=== PATIENT | female | born 1985 | race Caucasian/White ===

== ENCOUNTER → 2018-11-08 | Outpatient (CLI) | payer OTHER ==
[2018-11-08 13:24] LABS: BASO % 0.3 % (0.0-1.0); EOS # 0.2 10^3/uL (0.0-0.50); EOS % 1.7 % (0.0-3.0); HEMATOCRIT 37.4 % (36.0-47.0); HEMOGLOBIN 12.4 g/dl (12.0-15.5); LYMPH # 1.9 10^3/uL (1.5-4.5); LYMPH % 16.2 % (24.0-44.0); MEAN CORPUSCULAR HEMOGLOBIN 29.9 pg (27.0-33.0); MEAN CORPUSCULAR HGB CONC 33.2 g/dl (32.0-36.5); MEAN CORPUSCULAR VOLUME 90.1 fl (80.0-96.0); MONO # 0.5 10^3/uL (0.0-0.8); MONO % 4.1 % (0.0-5.0); NEUTROPHILS % 77.2 % (36.0-66.0); PLATELET COUNT, AUTOMATED 276 10^3/uL (150-450); RED BLOOD COUNT 4.15 10^6/uL (4.00-5.40); WHITE BLOOD COUNT 11.7 10^3/uL (4.0-10.0)
== END ==
LOC: M LAB 11:51
PROVIDERS: ATTEND Nurse Practitioner Women's Health
DX: Z34.82 Encounter for supervision of other normal pregnancy, second trimester (principal); Z3A.00 Weeks of gestation of pregnancy not specified

== ENCOUNTER 2019-02-05 03:49 | Inpatient (IN) | payer OTHER ==
[2019-02-05] VITALS (15 sets, daily range): BP systolic 108–157; BP diastolic 63–91
[~2019-02-05] VITALS: Ht 180.3 cm; Wt 63.0 kg
[2019-02-05] MEDS ORDERED: PENICILLIN G POTASSIUM IV 5 MU in D5W MINI-BAG PLUS 100 ML IV ONE (05:00)
[2019-02-05 05:13] LABS: HEMATOCRIT 36.4 % (36.0-47.0); HEMOGLOBIN 12.2 g/dl (12.0-15.5); MEAN CORPUSCULAR HEMOGLOBIN 30.5 pg (27.0-33.0); MEAN CORPUSCULAR HGB CONC 33.5 g/dl (32.0-36.5); PLATELET COUNT, AUTOMATED 213 10^3/uL (150-450); WHITE BLOOD COUNT 9.6 10^3/uL (4.0-10.0)
[2019-02-05] MEDS ORDERED: FOLI400T PO (05:47)
[2019-02-05] MEDS ORDERED: PRENTAB9 PO (05:47)
[2019-02-05] MEDS ORDERED: LR 1,000 ML IV SCH ×3 (06:18→07:05)
[2019-02-05] MEDS ORDERED: PENICILLIN G POTASSIUM IV 5 MU in D5W MINI-BAG PLUS 100 ML IV STA (06:22)
[2019-02-05] MEDS ORDERED: LACTATED RINGER'S 1000 ML IV ONE (06:30)
[2019-02-05] MEDS ORDERED: OXYTOCIN DRIP 30 UNITS in APPROPRIATE DILUENT 1 EA IV SCH ×6 (06:30→11:01)
--- NOTE | 2019-02-05 09:11 | IPNPDOC ---
Text Note Date of Service The patient was seen on 02/05/19. NOTE Intrapartum Note I assumed care of David at 0730 David is a 34yo with SIUP at 39w0d who presented early this morning with PROM at 0300 this morning, clear. She was started on PCN and will be PCN complete at 0930. She is still not feeling strong ctx. Good movement. Vitals wnl, afebrile Cat I FHRT bl 130's, +accels, -decels, mod mark [place]: ctx q3min SCE: 5-6/80/-2, still clear fluid Plan: Continue to closely monitor Next dose of PCN at 0930 Will initiate pitocin and titrate up per protocol Epidural as desired Safe to proceed Dr. Laury Rutledge MD VS,Shadi, I+O VS, Shadi, I+O Laboratory Tests 02/05/19 05:07 Red Blood Count 4.00, Mean Corpuscular Volume 91.0, Mean Corpuscular Hemoglobin 30.5, Mean Corpuscular Hemoglobin Concent 33.5, Red Cell Distribution Width 13.2 Vital Signs Date Time Temp Pulse Resp B/P (MAP) Pulse Ox O2 Delivery O2 Flow Rate FiO2 02/05/19 04:17 98.3 90 16 121/79 (93) Laury Rutledge MD Feb 05, 2019 09:11
[2019-02-05] MEDS ORDERED: PENICILLIN G POTASSIUM IV 2.5 MU in APPROPRIATE DILUENT 1 EA IV SCH (09:30)
--- NOTE | 2019-02-05 09:35 | HPE ---
DATE OF ADMISSION: 02/05/2019 34-year-old 2, para 1, last menstrual period (LMP) 05/08/2018, expected date of confinement (EDC) 02/12/2019, at 39 weeks of gestation with spontaneous rupture of membranes, clear liquid, GBS positive. Risk factors is she is an advanced maternal age, mitral valve prolapse, GBS positive, in vitro fertilization (IVF) , pyeloplasty of the left kidney. PAST HISTORY: January 2016, at 39 weeks, 7 pounds 9 ounces female, vaginal delivery, preeclampsia with severe features, induction of labor, vacuum-assisted delivery with a second-degree tear. LABS: A+, HIV negative, hepatitis negative, RPR negative, rubella immune, varicella immune. Urine negative. GBS was positive. Gonorrhea and chlamydia are negative. 1-hour glucose was 135 and she is doing her blood sugars. ON EXAMINATION: No distress. Symphysis fundus height is 39, vertex, posterior, -3 station, 50% effaced, 1 cm. Urine is 1.000, pH of 6 and the rest is negative. Temperature is 98.3, pulse 90, respirations 16, blood pressure 121/79. The rest of the examination is unremarkable. She is normocephalic, atraumatic. Neck: Full range of motion. Pupils equal and reactive to light. Distal pulses symmetric. No evidence of deep vein thrombosis (DVT), pulmonary embolism (PE) or superficial phlebitis. Chest is clear bilaterally to bases. No wheezes or rhonchi. No costovertebral angle (CVA) tenderness. Uterus appropriate symphysis fundus height, four quadrant bowel sounds, no incisions. No rashes, lesions or pruritus. No arthralgia. No myalgias. No complaint of joint pain. No complaint of cough, wheeze, shortness of breath or dyspnea on exertion. No bleeding. Neuro complete. No frequency or incontinency. She has no diabetic issues. Doing her 1-hour glucose, it was 135 and she elected to go ahead and do fingersticks, which were normal. 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 No sexually transmitted diseases (STDs). PAST MEDICAL/SURGICAL HISTORY: Unremarkable. FAMILY HISTORY: Noncontributory. SOCIAL HISTORY: She does not smoke, drink abuse drugs. 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 No domestic violence. We discussed vaginal delivery of the baby through the vagina with the possibility of assistance of vacuum or forceps if needed for maternal or indications, forceps or vacuum device to assist with vaginal delivery when normal pushing efforts cannot achieve delivery on their own, or when delivery is needed for an emergency for the baby's well-being. Medications may be used and required to induce or augment labor in order to achieve vaginal delivery. Episiotomy may be required to help deliver baby vaginally. May also require repair of lacerations, tears of vagina or vulva that are caused by vaginal delivery. In some cases, emergencies may arise that emergency section is necessary for the benefit of the baby and the mother and that there is no time to sign consent forms, but the physician will discuss the reason for section and these are done for medically indicated purposes. The risks of vaginal delivery include, but are not limited to bleeding, infection, injury to the vagina or pelvic structures, injury to baby, damage to the uterus, reaction to anesthesia, uterine rupture, risk of hysterectomy because of life-threatening bleeding, medication used to induce or augment delivery, possibly increased risk of infection, uterine tachysystole, uterine rupture, heart rate abnormalities, need for emergency section, hemorrhage. Additional risks of use of forceps or vacuum, or scratches, hematomas of head and intracranial bleed. The patient expressed understanding and has had a previous vacuum delivery. The patient expressed understanding as did her . Will continue on and all questions were answered.
[2019-02-05] MEDS ORDERED: FENTANYL 2MCG/ML ROPIVACAINE 0.2% IN 0.9% NACL 100ML IVBAG As Ordered ONE (10:03)
[2019-02-05] MEDS ORDERED: EPIDURAL COMMENT XX SCH (11:00)
[2019-02-05] MEDS ORDERED: ePHEDrine SULFATE 25 MG/5 ML(5MG/ML) SYRINGE IV PRN (11:00)
[2019-02-05] MEDS ORDERED: diphenhydrAMINE INJ 50MG/ML VIAL (J1200) IV PRN (11:00)
[2019-02-05] MEDS ORDERED: REFRIGERATOR IV KEYS XX PRN (11:00)
[2019-02-05] MEDS ORDERED: EPIDURAL/PCA KEYS XX PRN (11:00)
[2019-02-05] MEDS ORDERED: ONDANSETRON 4MG/2ML VIAL (J2405) IV PRN (11:00)
[2019-02-05] MEDS ORDERED: NALOXONE INJ 0.4 MG/1 ML VIAL (J2310) IV PRN (11:00)
[2019-02-05] MEDS ORDERED: FENTANYL/ROPIVACAINE/NACL BAG 100 ML EPIDURAL SCH (11:00)
[2019-02-05] MEDS ORDERED: DOCUSATE SODIUM 100 MG CAP PO PRN (11:15)
[2019-02-05] MEDS ORDERED: RHOGAM 300 MCG (1500 IU) INJ (J2790) IM SCH (11:15)
[2019-02-05] MEDS ORDERED: MEASLES,MUMPS,RUBELLA VACCINE INJ (MMR-II) (90707) SC SCH (11:15)
[2019-02-05] MEDS ORDERED: DIBUCAINE 1% OINTMENT 30GM TOP PRN (11:15)
[2019-02-05] MEDS ORDERED: ACETAMINOPHEN TAB 650MG DOSE (2X325MG) PO PRN (11:15)
[2019-02-05] MEDS ORDERED: IBUPROFEN 800 MG TAB PO PRN (11:15)
[2019-02-05] MEDS ORDERED: IBUPROFEN 600 MG TAB PO PRN (11:15)
[2019-02-05] MEDS ORDERED: ACETAMINOPHEN 500 MG TAB PO PRN (11:15)
--- NOTE | 2019-02-05 11:19 | DNPDOC ---
[facility] Delivery Note Delivery Note DATE OF DELIVERY: February 05, 2019 PREDELIVERY DIAGNOSIS: 39w0d with PROM, clear POST DELIVERY DIAGNOSIS: Delivered. PROCEDURE: Spontaneous vaginal delivery PIPE FITTER: Dr. Laury Rutledge MD ANESTHESIA: epidural ESTIMATED BLOOD LOSS: 200 mL. FINDINGS: male , Score 8/9, see infant chart for weight DELIVERY SUMMARY: David is a 34yo [id number] s/p uncomplicated at 39w0d after presenting with PROM earlier in the morning, delivering on 02/05/19 at 10:42. She progressed with just 4mu of pitocin, received an epidural and 2 doses of PCN, immediately after epidural felt desire to push and at that time was C/C/+1. With just a few sets of pushes, head delivered OA, restituted ROBERTO. Right anterior shoulder delivered followed by posterior shoulder and corpus. was vigorous with spontaneous cry, placed on maternal abdomen, apgars 8/9. After approx. two minutes, cord was clamped x2 and cut by FOB. Inspection of perineum and vagina revealed 2 small labial abrasions and a hymenal gautam, all repaired with figure of 8's using 4-0 vicryl with complete reapproximation and hemostasis. Uterine massage then performed with traction on the cord, and placenta delivered spontaneously and intact with 3 vessel centrally inserted cord, placenta observed to be intact. Bimanual massage performed and pitocin given per pr otocol, fundus firm at u-2cm with complete hemostasis. All counts correct x2. Mom and were doing well when I left the room. MD Maty Rodrigez Katrina D MD Feb 05, 2019 11:19
[2019-02-06 06:44] VITALS: BP 110/69
--- NOTE | 2019-02-06 06:54 | DS.PDOC ---
Discharge Summary General Date of Admission Feb 05, 2019 at 04:23 Date of Discharge [id number] Discharge Summary ADMITTING DIAGNOSES: Active labor DISCHARGE DIAGNOSES: Same, HOSPITAL COURSE: Admitted and delivery uncomplicated, . course uncomplicated. DISCHARGE MEDICATIONS: Motrin, Lanolin DISCHARGE INSTRUCTIONS: Nothing in the vagina for 6 weeks. F/U in OBGYN clinic in 6-8 weeks. Sessions Vital Signs/I&Os Vital Signs Date Time Temp Pulse Resp B/P (MAP) Pulse Ox O2 Delivery O2 Flow Rate FiO2 02/06/19 06:44 97.8 84 16 110/69 (83) I&O- Last 24 Hours up to 6 AM 02/06/19 06:00 Intake Total 2413.2 ml Output Total 1300 ml Balance 1113.2 ml Discharge Medications Scheduled Folic Acid (Folic Acid) 0.4 Mg Tablet, 1 TAB PO DAILY, (Reported) No.137/Iron/Folic Acd ( Vitamin Tablet) 1 Each Tablet, 1 TAB PO DAILY, (Reported) Allergies Coded Allergies: No Known Allergies (Unverified , 02/05/19) SESSIONS,ROBB Vieira MD Feb 06, 2019 06:54
--- NOTE | 2019-02-06 06:55 | IPNPDOC ---
Text Note Date of Service The patient was seen on 02/06/19. NOTE PPD1 States feeling well, pain controlled with prescribed meds. Baby bonding and feeding well. No heavy VB. Lochia slowing. Ambulatory. Tolerating PO without issues. Voiding spont. No CP/LP/SOB. VSSAF NAD A&O LE no C/C/E Ut at U-2, firm a/p: Doing well. Cont routine care. D/C today. Sessions Shadi GUERRERO, I+O VSShadi I+O Vital Signs Date Time Temp Pulse Resp B/P (MAP) Pulse Ox O2 Delivery O2 Flow Rate FiO2 02/06/19 06:44 97.8 84 16 110/69 (83) I&O- Last 24 Hours up to 6 AM 02/06/19 06:00 Intake Total 2413.2 ml Output Total 1300 ml Balance 1113.2 ml ROBB VICTORIA MD Feb 06, 2019 06:55
[2019-02-06] MEDS ORDERED: IBUP80TA PO (06:57)
[2019-02-06] MEDS ORDERED: ACET1TAB55 PO (06:57)
[2019-02-06] MEDS ORDERED: PRENATAL VITAMINS CHEWABLE TABLET PO SCH (09:00)
== END 2019-02-06 14:55 | disposition home or self-care (01) | DRG 807 ==
LOC: M LDO 03:49 → M LDI 04:23 → M OBS 13:38
PROVIDERS: ADMIT Obstetrics & Gynecology; ATTEND Obstetrics & Gynecology
PROC: 10E0XZZ Delivery of Products of Conception, External Approach (ICD-10-PCS; principal; 2019-02-05)
DX: O42.02 Full-term premature rupture of membranes, onset of labor within 24 hours of rupture (principal); Z37.0 Single live birth; O99.824 Streptococcus B carrier state complicating childbirth; Z3A.39 39 weeks gestation of pregnancy